=== PATIENT | male | born 1995 | race Caucasian/White ===

== ENCOUNTER → 2020-04-26 | Outpatient (CLI) | payer OTHER | END | disposition home or self-care (01) | LOC: RAD 16:00 | PROVIDERS: ATTEND General Practice | DX: M25.561 Pain in right knee (principal) ==

== ENCOUNTER → 2020-05-31 | Outpatient (CLI) | payer OTHER | END | disposition home or self-care (01) | LOC: MRI 10:15 | PROVIDERS: ATTEND Orthopaedic Surgery | DX: M76.51 Patellar tendinitis, right knee (principal) | CPT/HCPCS: 73721 ==

== ENCOUNTER 2020-06-06 14:02 | Outpatient (CLI) | payer OTHER | END 2020-06-06 14:10 | disposition home or self-care (01) | LOC: RAD 14:02 | PROVIDERS: ATTEND Orthopaedic Surgery | DX: M25.561 Pain in right knee (principal); M25.562 Pain in left knee ==

== ENCOUNTER 2020-06-10 13:31 | Outpatient (CLI) | payer OTHER | END 2020-06-10 13:45 | disposition home or self-care (01) | LOC: RAD 13:31 | PROVIDERS: ATTEND Orthopaedic Surgery | DX: M25.561 Pain in right knee (principal); M25.562 Pain in left knee ==

== ENCOUNTER 2020-08-13 07:27 | Day surgery (SDC) | payer OTHER | END 2020-08-13 20:30 | disposition home or self-care (01) | LOC: CIR.AMB 07:27 | PROVIDERS: ATTEND Orthopaedic Surgery | DX: M12.261 Villonodular synovitis (pigmented), right knee (principal); M22.11 Recurrent subluxation of patella, right knee; M23.671 Other spontaneous disruption of capsular ligament of right knee; M22.41 Chondromalacia patellae, right knee; M85.661 Other cyst of bone, right lower leg; Z20.828 Contact with and (suspected) exposure to other viral communicable diseases ==

== ENCOUNTER 2020-09-20 08:01 | Outpatient (CLI) | payer OTHER | END 2020-09-20 10:20 | disposition home or self-care (01) | LOC: RAD 08:01 | PROVIDERS: ATTEND Orthopaedic Surgery | DX: M25.561 Pain in right knee (principal) ==

== ENCOUNTER 2020-10-31 07:44 | Outpatient (CLI) | payer OTHER | END 2020-10-31 07:45 | disposition home or self-care (01) | LOC: RAD 07:44 | PROVIDERS: ATTEND Orthopaedic Surgery | DX: M25.561 Pain in right knee (principal) ==

== ENCOUNTER 2021-03-05 08:23 | Outpatient (CLI) | payer OTHER | END 2021-03-05 08:33 | disposition home or self-care (01) | LOC: RAD 08:23 | PROVIDERS: ATTEND Orthopaedic Surgery | DX: M22.01 Recurrent dislocation of patella, right knee (principal) ==

== ENCOUNTER 2021-10-15 16:57 | Emergency (ER) | payer OTHER ==
[~2021-10-15] VITALS: Ht 182.9 cm; Wt 79.4 kg
== END 2021-10-15 19:28 | disposition home or self-care (01) ==
LOC: ER 16:57
DX: R10.13 Epigastric pain (principal); Z91.013 Allergy to seafood